=== PATIENT | male | born 1985 | race African-American/Black ===

== ENCOUNTER 2021-04-01 09:34 | Emergency (ER) | payer SELFPAY ==
[~2021-04-01] VITALS: Ht 182.9 cm; Wt 81.6 kg
[2021-04-01 10:29] LABS: BASOPHIL 0.2 % (0-2); EOSINOPHIL 0.2 % (0-5); HCT 45.1 % (42.0-52.0); HGB 15.4 g/dl (13.2-18.0); LYMPHOCYTE 17.1 % (15-48); MCH 29.9 pg (25.0-31.0); MCHC 34.1 g/dL (32.0-36.0); MCV 87.6 fL (78.0-100.0); MPV 9.6 fL (6.0-9.5); NEUTROPHIL 77.2 % (41-80); NRBC 0; PLT 382 K/uL (150-400); RBC 5.15 M/uL (4.70-6.00); RDW 13.9 % (11.5-14.0); WBC 12.4 K/uL (4.0-10.5)
[2021-04-01 10:32] LABS: AMPHETAMINES POSITIVE (NEGATIVE); BARBITURATES NEGATIVE (NEGATIVE); ECSTASY (MDMA) POSITIVE (NEGATIVE); MARIJUANA (THC) NEGATIVE (NEGATIVE); METHADONE NEGATIVE (NEGATIVE); OPIATES NEGATIVE (NEGATIVE)
[2021-04-01 10:33] LABS: OXYCODONE NEGATIVE (NEGATIVE)
[2021-04-01 10:36] LABS: ALBUMIN 3.8 g/dL (3.4-5.0); BILIRUBIN - TOTAL 0.3 mg/dL (0.2-1.0); BUN/CREAT RATIO (CALC) 9.9 RATIO; CREATININE 0.91 mg/dL (0.67-1.17); GLOBULIN (CALCULATION) 4.3 g/dL; TOTAL PROTEIN 8.1 g/dL (6.4-8.2)
[2021-04-01] MEDS ORDERED: ONDANSETRON ODT4 MG PO (10:59)
== END 2021-04-01 12:41 | disposition home or self-care (01) ==
LOC: FER 09:34
PROVIDERS: Internal Medicine
DX: F11.13 Opioid abuse with withdrawal (principal); F17.210 Nicotine dependence, cigarettes, uncomplicated
CPT/HCPCS: 36415; 80053; 80305; 85025; J2405; J3411; J3475; J7120